=== PATIENT | female | born 1985 | race Caucasian/White ===

== ENCOUNTER 2019-10-15 23:46 | Inpatient (IN) | payer MEDICARE, MEDICAID ==
--- NOTE | 2019-10-15 23:59 | EDM.PDOC ---
ED HPI GENERAL MEDICAL PROBLEM - General Stated Complaint: COLD Time Seen by Provider: 10/15/19 23:52 Source of Information: Reports: Patient, RN History Limitations: Reports: No Limitations - History of Present Illness INITIAL COMMENTS - FREE TEXT/NARRATIVE: Cold x 3-4 days, with thick phlegm. Has not been to clinic. No real PCP. Has has tried muccinex and dimetapp. Sore throat. no fever. Coughing a lot. Sputum has been clear. Nasal discharge clear thin. No vomiting. Hx Shandra Nilo. Mobility issues. Does ambulate with supervision. No significant health hx. no home medication. - Related Data Allergies Allergy/AdvReac Type Severity Reaction Status Date / Time No Known Allergies Allergy Verified 10/15/19 23:53 Home Meds: Home Meds . [No Known Home Meds] 10/15/19 [History] Past Medical History - History Comment History Comment: Shandra Corcoran Social & Family History - Tobacco Use Smoking Status *Q: Never Smoker ED ROS GENERAL - Review of Systems Review Of Systems: Comprehensive ROS is negative, except as noted in HPI. ED EXAM, GENERAL - Physical Exam Exam: See Below Exam Limited By: No Limitations General Appearance: Alert, No Apparent Distress, Obese Eye Exam: Bilateral Eye: EOMI Ears: Normal External Exam, Hearing Grossly Normal, Normal TMs Nose: Normal Inspection Throat/Mouth: Normal Inspection, Normal Lips Head: Atraumatic, Normocephalic Neck: Normal Inspection, Full Range of Motion Respiratory/Chest: No Respiratory Distress, Rhonchi. No: Wheezing, Stridor, Accessory Muscle Use Cardiovascular: Normal Peripheral Pulses, Regular Rate, Rhythm GI/Abdominal: Normal Bowel Sounds, Soft Back Exam: Normal Inspection Extremities: No: Mottled Neurological: Alert (mild -moderate cognitive deficit), Oriented, Other ( ambulatory with supervision). No: Normal Cognition (mild -moderate cognitive deficet) Psychiatric: Normal Affect, Normal Mood Skin Exam: Warm, Dry, Intact, Normal Color Course - Vital Signs Last Recorded V/S: Last Vital Signs Temp 97.6 F 10/15/19 23:53 Pulse 126 H 10/15/19 23:53 Resp 30 H 10/15/19 23:53 BP 158/93 H 10/15/19 23:53 Pulse Ox 91 L 10/15/19 23:53 - Orders/Labs/Meds Orders: Active Orders 24 hr Category Date Time Status Admission Diagnosis [ADT] Stat ADT 10/16/19 02:38 Ordered Admission Status [Patient Status] [ADT] Routine ADT 10/16/19 02:38 Ordered Cardiac Monitoring [RC] . DIRECTED Care 10/16/19 02:38 Ordered RT Aerosol Therapy [RC] ASDIRECTED Care 10/16/19 00:03 Active RT Aerosol Therapy [RC] ASDIRECTED Care 10/16/19 02:24 Ordered Chest 2V [CR] Urgent Exams 10/16/19 00:00 Ordered CULTURE STREP A CONFIRMATION [RM] Stat Lab 10/16/19 00:45 Results STREP SCRN A RAPID W CULT CONF [RM] Stat Lab 10/16/19 00:45 Results Isolation [COMM] Routine Oth 10/16/19 00:02 Active Labs: Laboratory Tests 10/16/19 10/16/19 Range/Units 00:38 00:38 WBC 8.7 (5.0-10.0) 10^3/uL RBC 5.28 (4.2-5.4) 10^6/uL Hgb 14.9 (12.0-16.0) g/dL Hct 45.1 (37.0-47.0) % MCV 85.4 (80-100) fL MCH 28.2 (27.0-34.0) pg MCHC 33.0 (33.0-35.0) g/dL Plt Count 221 (150-450) 10^3/uL Neut % (Auto) 80.1 H (42.2-75.2) % Lymph % (Auto) 9.9 L (20.5-50.1) % [place] % (Auto) 8.8 H (2-8) % Eos % (Auto) 0.7 L (1.0-3.0) % Baso % (Auto) 0.5 (0.0-1.0) % Sodium 135 L (136-145) mmol/L Potassium 4.4 (3.5-5.1) mmol/L Chloride 97 L (98-107) mmol/L Carbon Dioxide 29 (21-32) mmol/L Anion Gap 13.4 H (7-13) mEq/L BUN 12 (7-18) mg/dL Creatinine 0.54 L (0.55-1.02) mg/dL Est Cr Clr Drug Dosing TNP Estimated GFR (MDRD) > 60 BUN/Creatinine Ratio 22.2 (No establ ref range) Glucose 156 H (74-99) mg/dL Calcium 7.9 L (8.5-10.1) mg/dL Total Bilirubin 0.4 (0.2-1.0) mg/dL AST 25 (15-37) U/L ALT 25 (14-59) U/L Alkaline Phosphatase 75 (46-116) U/L Total Protein 7.9 (6.4-8.2) g/dL Albumin 3.5 (3.4-5.0) g/dL Globulin 4.4 Albumin/Globulin Ratio 0.8 Meds: Medications Discontinued Medications Generic Name Dose Route Start Last Admin Trade Name Freq PRN Reason Stop Dose Admin Albuterol 2.5 mg 10/16/19 02:23 10/16/19 02:28 Proventil Neb Soln NEB 10/16/19 02:24 2.5 mg ONETIME ONE Administration Albuterol/Ipratropium 3 ml 10/16/19 00:03 10/16/19 00:42 Duoneb 3.0-0.5 Mg/3 Ml NEB 10/16/19 00:04 3 ml ONETIME ONE Administration Azithromycin 500 mg 10/16/19 01:44 10/16/19 01:54 Zithromax 200 Mg/5 Ml Susp PO 10/16/19 01:45 500 mg ONETIME ONE Administration Ceftriaxone Sodium 1 gm/ 0 gm 10/16/19 01:46 10/16/19 01:58 Lidocaine HCl 2.1 ml IM 10/16/19 01:47 1 inj ONETIME ONE Administration - Radiology Interpretation Free Text/Narrative:: LLL pneumonia, see report - Re-Assessments/Exams Free Text/Narrative Re-Assessment/Exam: 10/16/19 02:46 Loose non productive non effective cough. Oxygen sats while awake, 91-92, desaturations with light dozing and lying back in chair, Dr Sepnce accepting patient for admission. Patient cooperative, able to follow simple directions. Departure - Departure Time of Disposition: 01:51 Disposition: Admitted As Inpatient 64 Condition: Good Clinical Impression: History of Prader-Willi syndrome, Hypoxia Pneumonia Qualifiers: Pneumonia type: due to unspecified organism Laterality: left Lung location: lower lobe of lung Qualified Code(s): J18.9 - Pneumonia, unspecified organism - Discharge Information *PRESCRIPTION DRUG MONITORING PROGRAM REVIEWED*: No *COPY OF PRESCRIPTION DRUG MONITORING REPORT IN PATIENT SANKET: No Instructions: Community-Acquired Pneumonia, Adult, [id number] Sepsis Event Note - Focused Exam Vital Signs: Vital Signs Temp Pulse Resp BP Pulse Ox 10/15/19 23:53 97.6 F 126 H 30 H 158/93 H 91 L Date Exam was Performed: 10/16/19 Time Exam was Performed: 02:51 - My Orders Last 24 Hours: My Active Orders 10/16/19 00:00 Chest 2V [CR] Urgent 10/16/19 00:02 Isolation [COMM] Routine 10/16/19 00:03 RT Aerosol Therapy [RC] ASDIRECTED 10/16/19 00:45 CULTURE STREP A CONFIRMATION [RM] Stat STREP SCRN A RAPID W CULT CONF [RM] Stat 10/16/19 02:24 RT Aerosol Therapy [RC] ASDIRECTED 10/16/19 02:38 Admission Diagnosis [ADT] Stat Admission Status [Patient Status] [ADT] Routine Cardiac Monitoring [RC] . DIRECTED - Assessment/Plan Last 24 Hours: My Active Orders 10/16/19 00:00 Chest 2V [CR] Urgent 10/16/19 00:02 Isolation [COMM] Routine 10/16/19 00:03 RT Aerosol Therapy [RC] ASDIRECTED 10/16/19 00:45 CULTURE STREP A CONFIRMATION [RM] Stat STREP SCRN A RAPID W CULT CONF [RM] Stat 10/16/19 02:24 RT Aerosol Therapy [RC] ASDIRECTED 10/16/19 02:38 Admission Diagnosis [ADT] Stat Admission Status [Patient Status] [ADT] Routine Cardiac Monitoring [RC] . DIRECTED
[2019-10-16] MEDS ORDERED: Albuterol/Ipratropium 3.0-0.5 MG/3 ML Neb Soln NEB ONE (00:03)
[2019-10-16 01:09] LABS: ANION GAP 13.4 mEq/L (7-13); CHLORIDE,CL 97 mmol/L (98-107); SODIUM,NA 135 mmol/L (136-145)
[2019-10-16] MEDS ORDERED: Azithromycin 200 MG/5 ML Susp 30 ML Bottle PO ONE (01:44)
[2019-10-16] MEDS ORDERED: cefTRIAXone 1 GM, Lidocaine 1% 2.1 ML IM ONE ×2 (01:46)
[2019-10-16] MEDS ORDERED: Albuterol 0.083% 2.5 MG/3 ML Neb Soln NEB ONE (02:23)
[2019-10-16] MEDS ORDERED: guaiFENesin 100 MG/5 ML Soln 5 ML UD Cup PO PRN (03:26)
[2019-10-16] MEDS ORDERED: Albuterol/Ipratropium 3.0-0.5 MG/3 ML Neb Soln NEB PRN (03:26)
[2019-10-16] MEDS ORDERED: Docusate Sodium 100 MG Cap PO PRN (03:27)
[2019-10-16] MEDS ORDERED: Ondansetron 4 MG Tab.DIS PO PRN (03:27)
[2019-10-16] MEDS ORDERED: Acetaminophen 325 MG Tab PO PRN (03:27)
[2019-10-16] MEDS ORDERED: Zolpidem 5 MG Tab PO PRN (03:27)
[2019-10-16] MEDS: Heparin Sodium 5,000 Units/ML Vial SUBCUT SCH ×3 (05:59→22:04)
[2019-10-16] MEDS: Albuterol/Ipratropium 3.0-0.5 MG/3 ML Neb Soln NEB SCH ×3 (07:35→18:34)
[2019-10-16] MEDS: Insulin Lispro 100 Units/ML 3 ML Vial SUBCUT SCH ×4 (08:12→22:06)
--- NOTE | 2019-10-16 10:21 | PCM.HP ---
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 She moves with electric wheelchair. No regular medications. She rarely goes to the doctor. Developed cough, stuffy nose, secretions associated with shortness of breath a few days prior to presentation to the emergency room. She has no known sick contact. Did not leave the house lately. No fever. No nausea, vomiting, abdominal pain, diarrhea, urinary symptoms. - Related Data Allergies/Adverse Reactions: Allergies Allergy/AdvReac Type Severity Reaction Status Date / Time No Known Allergies Allergy Verified 10/16/19 03:51 Home Medications: Home Meds . 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 Denies: Fever Pulmonary: Reports: Shortness of Breath, Cough, Sputum. Denies: Wheezing, Hemoptysis Cardiovascular: Reports: Edema. Denies: Chest Pain Gastrointestinal: Denies: Abdominal Pain Genitourinary: Denies: Frequency, Burning Psychiatric: Denies: Confusion Exam - Exam Exam: See Below - Vital Signs Vital Signs: Last Vital Signs Temp 97.6 F 10/16/19 07:52 Pulse 86 10/16/19 07:52 Resp 22 H 10/16/19 07:52 BP 111/61 10/16/19 07:52 Pulse Ox 92 L 10/16/19 07:52 Weight: 277 lb - Exam Quality Assessment: Supplemental Oxygen General: Alert, Oriented Neck: Supple Lungs: Normal Respiratory Effort, Decreased Breath Sounds, Rhonchi Cardiovascular: Regular Rate, Regular Rhythm GI/Abdominal Exam: Normal Bowel Sounds, Soft, Non-Tender, Other (Morbidly obese) Extremities: Other (Bilateral lower extremity lymphedema) - Patient Data Lab Results Last 24 hrs: Laboratory Results - last 24 hr 10/16/19 10/16/19 10/16/19 Range/Units 00:38 00:38 07:43 WBC 8.7 (5.0-10.0) 10^3/uL RBC 5.28 (4.2-5.4) 10^6/uL Hgb 14.9 (12.0-16.0) g/dL Hct 45.1 (37.0-47.0) % MCV 85.4 (80-100) fL MCH 28.2 (27.0-34.0) pg MCHC 33.0 (33.0-35.0) g/dL Plt Count 221 (150-450) 10^3/uL Neut % (Auto) 80.1 H (42.2-75.2) % Lymph % (Auto) 9.9 L (20.5-50.1) % [place] % (Auto) 8.8 H (2-8) % Eos % (Auto) 0.7 L (1.0-3.0) % Baso % (Auto) 0.5 (0.0-1.0) % Sodium 135 L (136-145) mmol/L Potassium 4.4 (3.5-5.1) mmol/L Chloride 97 L (98-107) mmol/L Carbon Dioxide 29 (21-32) mmol/L Anion Gap 13.4 H (7-13) mEq/L BUN 12 (7-18) mg/dL Creatinine 0.54 L (0.55-1.02) mg/dL Est Cr Clr Drug Dosing TNP Estimated GFR (MDRD) > 60 BUN/Creatinine Ratio 22.2 (No establ ref range) Glucose 156 H (74-99) mg/dL POC Glucose 125 H (70-105) mg/dl Calcium 7.9 L (8.5-10.1) mg/dL Total Bilirubin 0.4 (0.2-1.0) mg/dL AST 25 (15-37) U/L ALT 25 (14-59) U/L Alkaline Phosphatase 75 (46-116) U/L Total Protein 7.9 (6.4-8.2) g/dL Albumin 3.5 (3.4-5.0) g/dL Globulin 4.4 Albumin/Globulin Ratio 0.8 Result Diagrams: 10/16/19 00:38 10/16/19 00:38 Paul Results Last 24 hrs: Microbiology 10/16/19 00:03 Influenza Type A Antigen Screen - Final Nasal, Unspecified NEGATIVE INFLUENZA A VIRUS AG REFERENCE RANGE: NEGATIVE Influenza Type B Antigen Screen - Final NEGATIVE INFLUENZA B VIRUS AG REFERENCE RANGE: NEGATIVE 10/16/19 00:45 Group A Streptococcus Rapid Screen - Final Throat NEGATIVE STREP A SCREEN REFERENCE RANGE: NEGATIVE - Problem List (1) Hypoxia SNOMED Code(s): 710819395 ICD Code: R09.02 - HYPOXEMIA Status: Acute Current Visit: Yes (2) History of Prader-Willi syndrome SNOMED Code(s): 463379633 ICD Code: Q87.11 - PRADER-WILLI SYNDROME Status: Acute Current Visit: No (3) Pneumonia SNOMED Code(s): 166916334 ICD Code: J18.9 - PNEUMONIA, UNSPECIFIED ORGANISM Status: Acute Current Visit: No Qualifiers: Pneumonia type: due to unspecified organism Laterality: left Lung location: lower lobe of lung Qualified Code(s): J18.9 - Pneumonia, unspecified organism Problem List Initiated/Reviewed/Updated: Yes Orders Last 24hrs: Active Orders 24 hr Category Date Time Status Admission Diagnosis [ADT] Stat ADT 10/16/19 02:38 Ordered Admission Status [Patient Status] [ADT] Routine ADT 10/16/19 02:38 Active Antiembolic Devices [RC] PER UNIT ROUTINE Care 10/16/19 03:29 Active Cardiac Monitoring [RC] . DIRECTED Care 10/16/19 02:38 Inactive Glucose [Blood Glucose Check, Bedside] [RC] QIDACANDBED Care 10/16/19 03:27 Active Oxygen Therapy [RC] PRN Care 10/16/19 03:27 Active RT Aerosol Therapy [RC] ASDIRECTED Care 10/16/19 00:03 Active RT Aerosol Therapy [RC] ASDIRECTED Care 10/16/19 02:24 Active RT Aerosol Therapy [RC] ASDIRECTED Care 10/16/19 03:25 Active RT Aerosol Therapy [RC] ASDIRECTED Care 10/16/19 03:26 Active VTE/DVT Education [RC] PER UNIT ROUTINE Care 10/16/19 03:27 Active Vital Signs [RC] 04,08,12,16,20,00 Care 10/16/19 03:27 Active Regular Diet [DIET] Diet 10/16/19 Breakfast Active BASIC METABOLIC PANEL,BMP [CHEM] AM Lab 10/17/19 05:11 Ordered CBC W/O DIFF,HEMOGRAM [HEME] AM Lab 10/17/19 05:11 Ordered CULTURE STREP A CONFIRMATION [RM] Stat Lab 10/16/19 00:45 Results STREP SCRN A RAPID W CULT CONF [RM] Stat Lab 10/16/19 00:45 Results Acetaminophen [Tylenol] Med 10/16/19 03:27 Active 650 mg PO Q4H PRN Albuterol/Ipratropium [DuoNeb 3.0-0.5 MG/3 ML] Med 10/16/19 03:26 Active 3 ml NEB Q2H PRN Albuterol/Ipratropium [DuoNeb 3.0-0.5 MG/3 ML] Med 10/16/19 07:00 Active 3 ml NEB Q6HRRT Azithromycin [Zithromax] Med 10/16/19 18:00 Active 500 mg PO WITHDINNER Docusate Sodium [Colace] Med 10/16/19 03:27 Active 100 mg PO BID PRN Heparin Sodium Med 10/16/19 06:00 Active 5,000 units SUBCUT Q8HR Insulin Lispro [HumaLOG] Med 10/16/19 07:00 Active See Protocol SUBCUT ACBED Ondansetron [Zofran ODT] Med 10/16/19 03:27 Active 4 mg PO Q6H PRN Zolpidem [Ambien] Med 10/16/19 03:27 Active 5 mg PO BEDTIME PRN cefTRIAXone [Rocephin] 1 gm Med 10/16/19 17:00 Active Lidocaine 1% [Xylocaine-MPF 1%] 2.1 ml IM DAILY@1700 guaiFENesin [Robitussin] Med 10/16/19 03:26 Active 100 mg PO Q6H PRN Antiembolic Hose [OM.PC] Per Unit Routine Oth 10/16/19 03:28 Ordered Resuscitation Status Routine Resus Stat 10/16/19 03:27 Ordered Medication Orders Acetaminophen (Tylenol) 650 mg PO Q4H PRN PRN Reason: Pain (Mild 1-3)/fever Albuterol/Ipratropium (Duoneb 3.0-0.5 Mg/3 Ml) 3 ml NEB Q6HRRT [facility] Last Admin: 10/16/19 07:35 Dose: 3 ml Albuterol/Ipratropium (Duoneb 3.0-0.5 Mg/3 Ml) 3 ml NEB Q2H PRN PRN Reason: sob Azithromycin (Zithromax) 500 mg PO WITHDINNER [facility] Ceftriaxone Sodium 1 gm/ (Lidocaine HCl 2.1 ml) 0 gm IM DAILY@1700 [facility] Docusate Sodium (Colace) 100 mg PO BID PRN PRN Reason: Constipation Guaifenesin (Robitussin) 100 mg PO Q6H PRN PRN Reason: Cough Heparin Sodium (Porcine) (Heparin Sodium) 5,000 units SUBCUT Q8HR [facility] Last Admin: 10/16/19 05:59 Dose: 5,000 units Insulin Human Lispro (Humalog) 0 unit SUBCUT ACBED [facility]; Protocol Last Admin: 10/16/19 08:12 Dose: Not Given Ondansetron HCl (Zofran Odt) 4 mg PO Q6H PRN PRN Reason: nausea, able to take PO Zolpidem Tartrate (Ambien) 5 mg PO BEDTIME PRN PRN Reason: Sleep Assessment/Plan Comment:: 54 years old with a history of Edward Nilo syndrome She has associated morbid obesity, lymphedema, mental retardation. She presented with cough, congested airways. In the ER she was noted to have hypoxemia on room air, pneumonia on chest x-ray Acute community-acquired pneumonia Possible aspiration pneumonia We'll monitor for aspiration symptoms We were unable to obtain IV site due to body habitus Could not obtain blood cultures Try to obtain sputum culture We'll use IM ceftriaxone and oral azithromycin Add DuoNeb for airway clearance and secretions Acute hypoxemic respiratory failure Noted to have less than 88% saturations in the ER Supplement oxygen as needed Lymphedema Have PT, OT evaluation OT for lymphedema wraps bilateral lower extremities DVT prophylaxis with subcutaneous heparin
[2019-10-16] MEDS ORDERED: cefTRIAXone 1 GM, Lidocaine 1% 2.1 ML IM SCH ×2 (17:00)
[2019-10-16] MEDS ORDERED: Azithromycin 200 MG/5 ML Susp 30 ML Bottle PO SCH (18:00)
[2019-10-16] MEDS: Azithromycin 250 MG Tab PO SCH ×2 (18:34→19:02)
[2019-10-16] MEDS ORDERED: Acetaminophen Soln 160 MG/5 ML UD Cup PO PRN ×2 (22:53→22:57)
[2019-10-17] MEDS: Albuterol/Ipratropium 3.0-0.5 MG/3 ML Neb Soln NEB SCH ×4 (00:35→18:51)
[2019-10-17] MEDS: Heparin Sodium 5,000 Units/ML Vial SUBCUT SCH ×3 (05:49→22:26)
[2019-10-17 08:27] LABS: ANION GAP 15.4 mEq/L (7-13); CHLORIDE,CL 101 mmol/L (98-107); SODIUM,NA 138 mmol/L (136-145)
[2019-10-17] MEDS: Insulin Lispro 100 Units/ML 3 ML Vial SUBCUT SCH ×2 (09:13→12:28)
--- NOTE | 2019-10-17 11:42 | PCM.PN ---
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 She moves with electric wheelchair. She presented with cough, stuffy nose, nasal secretion and associated shortness of breath for a few days. She was admitted for possible comments" pneumonia. Chest x-ray showed right lower lung consolidation. Patient was sent today with father by bedside. She appears to be doing well. She is sitting up watching TV. Not in the pulmonary distress. She denies any symptoms. Functional Status: Reports: Pain Controlled - Review of Systems General: Reports: No Symptoms HEENT: Reports: No Symptoms Pulmonary: Reports: No Symptoms Cardiovascular: Reports: No Symptoms Gastrointestinal: Reports: No Symptoms Genitourinary: Reports: No Symptoms Musculoskeletal: Reports: No Symptoms Skin: Reports: No Symptoms Neurological: Reports: No Symptoms Psychiatric: Reports: No Symptoms - Patient Data Vitals - Most Recent: Last Vital Signs Temp 98.8 F 10/17/19 08:00 Pulse 93 10/17/19 08:00 Resp 24 H 10/17/19 08:00 BP 114/53 L 10/17/19 08:00 Pulse Ox 97 10/17/19 08:00 Weight - Most Recent: 277 lb I&O - Last 24 Hours: Intake & Output 10/16/19 10/17/19 10/17/19 22:59 06:59 14:59 Intake Total 1270 Output Total 300 Balance 1270 -300 Lab Results Last 24 Hours: Laboratory Results - last 24 hr 10/16/19 10/16/19 10/16/19 Range/Units 11:48 16:58 20:59 WBC (5.0-10.0) 10^3/uL RBC (4.2-5.4) 10^6/uL Hgb (12.0-16.0) g/dL Hct (37.0-47.0) % MCV (80-100) fL MCH (27.0-34.0) pg MCHC (33.0-35.0) g/dL Plt Count (150-450) 10^3/uL Sodium (136-145) mmol/L Potassium (3.5-5.1) mmol/L Chloride (98-107) mmol/L Carbon Dioxide (21-32) mmol/L Anion Gap (7-13) mEq/L BUN (7-18) mg/dL Creatinine (0.55-1.02) mg/dL Est Cr Clr Drug Dosing mL/min Estimated GFR (MDRD) Glucose (74-99) mg/dL POC Glucose 130 H 152 H 161 H (70-105) mg/dl Calcium (8.5-10.1) mg/dL 10/17/19 10/17/19 10/17/19 Range/Units 06:20 06:55 08:59 WBC 5.3 (5.0-10.0) 10^3/uL RBC 4.42 (4.2-5.4) 10^6/uL Hgb 12.5 D (12.0-16.0) g/dL Hct 38.9 (37.0-47.0) % MCV 88.0 (80-100) fL MCH 28.3 (27.0-34.0) pg MCHC 32.1 L (33.0-35.0) g/dL Plt Count 197 (150-450) 10^3/uL Sodium 138 (136-145) mmol/L Potassium 4.4 (3.5-5.1) mmol/L Chloride 101 (98-107) mmol/L Carbon Dioxide 26 (21-32) mmol/L Anion Gap 15.4 H (7-13) mEq/L BUN 15 (7-18) mg/dL Creatinine 0.57 (0.55-1.02) mg/dL Est Cr Clr Drug Dosing 98.01 mL/min Estimated GFR (MDRD) > 60 Glucose 159 H (74-99) mg/dL POC Glucose 132 H (70-105) mg/dl Calcium 7.8 L (8.5-10.1) mg/dL Paul Results Last 24 Hours: Microbiology 10/16/19 00:45 Quick Strep Confirmation Culture - Final Throat NO GROUP A STREP ISOLATED REFERENCE RANGE: NEGATIVE Group A Streptococcus Rapid Screen - Final NEGATIVE STREP A SCREEN REFERENCE RANGE: NEGATIVE Med Orders - Current: Current Medications Acetaminophen (Tylenol Solution) 650 mg PO Q6H PRN PRN Reason: Fever Last Admin: 10/16/19 23:04 Dose: 650 mg Albuterol/Ipratropium (Duoneb 3.0-0.5 Mg/3 Ml) 3 ml NEB Q6HRRT [facility] Last Admin: 10/17/19 07:36 Dose: 3 ml Albuterol/Ipratropium (Duoneb 3.0-0.5 Mg/3 Ml) 3 ml NEB Q2H PRN PRN Reason: sob Azithromycin (Zithromax 200 Mg/5 Ml Susp) 500 mg PO Q24H [facility] Last Admin: 10/16/19 19:35 Dose: 12.5 ml Ceftriaxone Sodium 1 gm/ (Lidocaine HCl 2.1 ml) 0 gm IM DAILY@1700 [facility] Last Admin: 10/16/19 18:33 Dose: 2.5 inj Docusate Sodium (Colace) 100 mg PO BID PRN PRN Reason: Constipation Guaifenesin (Robitussin) 100 mg PO Q6H PRN PRN Reason: Cough Heparin Sodium (Porcine) (Heparin Sodium) 5,000 units SUBCUT Q8HR [facility] Last Admin: 10/17/19 05:49 Dose: 5,000 units Insulin Human Lispro (Humalog) 0 unit SUBCUT ACBED [facility]; Protocol Last Admin: 10/17/19 09:13 Dose: Not Given Ondansetron HCl (Zofran Odt) 4 mg PO Q6H PRN PRN Reason: nausea, able to take PO Zolpidem Tartrate (Ambien) 5 mg PO BEDTIME PRN PRN Reason: Sleep Discontinued Medications Acetaminophen (Tylenol) 650 mg PO Q4H PRN PRN Reason: Pain (Mild 1-3)/fever Acetaminophen (Tylenol Solution) 650 mg PO Q6H PRN PRN Reason: Fever Albuterol (Proventil Neb Soln) 2.5 mg NEB ONETIME ONE Stop: 10/16/19 02:24 Last Admin: 10/16/19 02:28 Dose: 2.5 mg Albuterol/Ipratropium (Duoneb 3.0-0.5 Mg/3 Ml) 3 ml NEB ONETIME ONE Stop: 10/16/19 00:04 Last Admin: 10/16/19 00:42 Dose: 3 ml Azithromycin (Zithromax 200 Mg/5 Ml Susp) 500 mg PO ONETIME ONE Stop: 10/16/19 01:45 Last Admin: 10/16/19 01:54 Dose: 500 mg Azithromycin ([facility]romax) [facility] Last Admin: 10/16/19 19:02 Dose: Not Given Ceftriaxone Sodium 1 gm/ (Lidocaine HCl 2.1 ml) 0 gm IM ONETIME ONE Stop: 10/16/19 01:47 Last Admin: 10/16/19 01:58 Dose: 1 inj - Exam Quality Assessment: Supplemental Oxygen, DVT Prophylaxis General: Alert, Oriented HEENT: Pupils Equal, Pupils Reactive, EOMI, Mucous Membr. Moist/[place] Neck: Supple Lungs: Clear to Auscultation, Normal Respiratory Effort Cardiovascular: Regular Rate, Regular Rhythm GI/Abdominal Exam: Normal Bowel Sounds, Soft, Non-Tender, No Organomegaly, No Distention, No Abnormal Bruit, No Mass, Pelvis Stable (Female) Exam: Normal External Exam, Normal Speculum Exam, Normal Bimanual Exam Back Exam: Normal Inspection, Full Range of Motion Extremities: Normal Inspection, Normal Range of Motion, Non-Tender, No Pedal Edema, Normal Capillary Refill Skin: Warm, Dry, Intact Wound/Incisions: Healing Well Neurological: No New Focal Deficit Psy/Mental Status: Alert, Normal Affect, Normal Mood Sepsis Event Note - Evaluation Sepsis Screening Result: No Definite Risk - Focused Exam Vital Signs: Vital Signs Temp Pulse Resp BP BP Pulse Ox Pulse Ox 10/17/19 08:00 98.8 F 93 24 H 114/53 L 97 10/17/19 07:36 94 10/17/19 03:27 93 L 10/17/19 00:35 85 89 L 10/17/19 00:00 99.5 F 101 H 20 85/57 L 93 L Date Exam was Performed: 10/17/19 Time Exam was Performed: 11:36 - Problem List Review Problem List Initiated/Reviewed/Updated: Yes - Plan Plan:: Acute community-acquired pneumonia vs possible aspiration pneumonia Shin improvement Continue current antibiotics Aspiration precautions Blood cultures Sputum culture Add DuoNeb for airway clearance and secretions Acute hypoxemic respiratory failure Continue Supplement oxygen and weaned off as able Lymphedema Have PT, OT evaluation OT for lymphedema wraps bilateral lower extremities DVT prophylaxis with subcutaneous heparin
[2019-10-17] MEDS: Levofloxacin 500 MG Tab PO SCH (15:02)
[2019-10-18] MEDS: Albuterol/Ipratropium 3.0-0.5 MG/3 ML Neb Soln NEB SCH ×4 (01:21→18:15)
[2019-10-18] MEDS: Heparin Sodium 5,000 Units/ML Vial SUBCUT SCH ×3 (06:41→22:56)
[2019-10-18] MEDS ORDERED: Levofloxacin 500 MG Tab PO SCH (07:00)
[2019-10-18 07:37] LABS: ANION GAP 12.6 mEq/L (7-13); CHLORIDE,CL 103 mmol/L (98-107); SODIUM,NA 141 mmol/L (136-145)
--- NOTE | 2019-10-18 12:25 | PCM.PN ---
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 She moves with electric wheelchair. She presented with cough, stuffy nose, nasal secretion and associated shortness of breath for a few days. She was admitted for possible comments" pneumonia. Chest x-ray showed right lower lung consolidation. Patient was sent today with mother by bedside. She is doing ok. She is sitting up watching TV. Not in the pulmonary distress. She is in 0.5 L via NC. However her satuarion dropped to 85% on RA. She denies any symptoms. requested for walking desat test. Functional Status: Reports: Pain Controlled - Review of Systems General: Reports: No Symptoms HEENT: Reports: No Symptoms Pulmonary: Reports: No Symptoms Cardiovascular: Reports: No Symptoms Gastrointestinal: Reports: No Symptoms Genitourinary: Reports: No Symptoms Musculoskeletal: Reports: No Symptoms Skin: Reports: No Symptoms Neurological: Reports: No Symptoms Psychiatric: Reports: No Symptoms - Patient Data Vitals - Most Recent: Last Vital Signs Temp 98.9 F 10/18/19 11:40 Pulse 88 10/18/19 11:40 Resp 18 10/18/19 11:40 BP 109/72 10/18/19 11:40 Pulse Ox 90 L 10/18/19 11:40 Weight - Most Recent: 277 lb I&O - Last 24 Hours: Intake & Output 10/17/19 10/18/19 10/18/19 22:59 06:59 14:59 Intake Total 510 Balance 510 Lab Results Last 24 Hours: Laboratory Results - last 24 hr 10/18/19 10/18/19 Range/Units 06:48 06:48 WBC 4.6 L (5.0-10.0) 10^3/uL RBC 4.26 (4.2-5.4) 10^6/uL Hgb 12.0 (12.0-16.0) g/dL Hct 37.7 (37.0-47.0) % MCV 88.5 (80-100) fL MCH 28.2 (27.0-34.0) pg MCHC 31.8 L (33.0-35.0) g/dL Plt Count 213 (150-450) 10^3/uL Sodium 141 (136-145) mmol/L Potassium 4.6 (3.5-5.1) mmol/L Chloride 103 (98-107) mmol/L Carbon Dioxide 30 (21-32) mmol/L Anion Gap 12.6 (7-13) mEq/L BUN 16 (7-18) mg/dL Creatinine 0.49 L (0.55-1.02) mg/dL Est Cr Clr Drug Dosing 114.01 mL/min Estimated GFR (MDRD) > 60 Glucose 118 H (74-99) mg/dL Calcium 8.1 L (8.5-10.1) mg/dL Phosphorus 3.5 (2.6-4.7) mg/dL Magnesium 2.2 (1.8-2.4) mg/dL Med Orders - Current: Current Medications Acetaminophen (Tylenol Solution) 650 mg PO Q6H PRN PRN Reason: Fever Last Admin: 10/16/19 23:04 Dose: 650 mg Albuterol/Ipratropium (Duoneb 3.0-0.5 Mg/3 Ml) 3 ml NEB Q6HRRT [facility] Last Admin: 10/18/19 07:58 Dose: 3 ml Albuterol/Ipratropium (Duoneb 3.0-0.5 Mg/3 Ml) 3 ml NEB Q2H PRN PRN Reason: sob Docusate Sodium (Colace) 100 mg PO BID PRN PRN Reason: Constipation Guaifenesin (Robitussin) 100 mg PO Q6H PRN PRN Reason: Cough Heparin Sodium (Porcine) (Heparin Sodium) 5,000 units SUBCUT Q8HR [facility] Last Admin: 10/18/19 06:41 Dose: 5,000 units Levofloxacin (Levaquin) 500 mg PO Q24H [facility] Last Admin: 10/17/19 15:02 Dose: 500 mg Ondansetron HCl (Zofran Odt) 4 mg PO Q6H PRN PRN Reason: nausea, able to take PO Zolpidem Tartrate (Ambien) 5 mg PO BEDTIME PRN PRN Reason: Sleep Discontinued Medications Acetaminophen (Tylenol) 650 mg PO Q4H PRN PRN Reason: Pain (Mild 1-3)/fever Acetaminophen (Tylenol Solution) 650 mg PO Q6H PRN PRN Reason: Fever Albuterol (Proventil Neb Soln) 2.5 mg NEB ONETIME ONE Stop: 10/16/19 02:24 Last Admin: 10/16/19 02:28 Dose: 2.5 mg Albuterol/Ipratropium (Duoneb 3.0-0.5 Mg/3 Ml) 3 ml NEB ONETIME ONE Stop: 10/16/19 00:04 Last Admin: 10/16/19 00:42 Dose: 3 ml Azithromycin (Zithromax 200 Mg/5 Ml Susp) 500 mg PO ONETIME ONE Stop: 10/16/19 01:45 Last Admin: 10/16/19 01:54 Dose: 500 mg Azithromycin (Zithromax) 500 mg PO WITHDINNER [facility] Last Admin: 10/16/19 19:02 Dose: Not Given Azithromycin (Zithromax 200 Mg/5 Ml Susp) 500 mg PO Q24H [facility] Last Admin: 10/16/19 19:35 Dose: 12.5 ml Ceftriaxone Sodium 1 gm/ (Lidocaine HCl 2.1 ml) 0 gm IM ONETIME ONE Stop: 10/16/19 01:47 Last Admin: 10/16/19 01:58 Dose: 1 inj Ceftriaxone Sodium 1 gm/ (Lidocaine HCl 2.1 ml) 0 gm IM DAILY@1700 [facility] Last Admin: 10/16/19 18:33 Dose: 2.5 inj Insulin Human Lispro (Humalog) 0 unit SUBCUT ACBED [facility]; Protocol Last Admin: 10/17/19 12:28 Dose: Not Given Levofloxacin (Levaquin) 500 mg PO Q24H [facility] - Exam Quality Assessment: Supplemental Oxygen, DVT Prophylaxis General: Alert, Oriented HEENT: Pupils Equal, Pupils Reactive, EOMI, Mucous Membr. Moist/[place] Neck: Supple Lungs: Clear to Auscultation, Normal Respiratory Effort Cardiovascular: Regular Rate, Regular Rhythm GI/Abdominal Exam: Normal Bowel Sounds, Soft, Non-Tender, No Organomegaly, No Distention, No Abnormal Bruit, No Mass, Pelvis Stable (Female) Exam: Normal External Exam, Normal Speculum Exam, Normal Bimanual Exam Back Exam: Normal Inspection, Full Range of Motion Extremities: Normal Inspection, Normal Range of Motion, Non-Tender, No Pedal Edema, Normal Capillary Refill Skin: Warm, Dry, Intact Wound/Incisions: Healing Well Neurological: No New Focal Deficit Psy/Mental Status: Alert, Normal Affect, Normal Mood Sepsis Event Note - Evaluation Sepsis Screening Result: No Definite Risk - Focused Exam Vital Signs: Vital Signs Temp Pulse Resp BP Pulse Ox Pulse Ox 10/18/19 11:40 98.9 F 88 18 109/72 90 L 10/18/19 07:58 92 90 L 10/18/19 07:47 99.5 F 92 20 105/55 L 90 L 10/18/19 05:16 91 L 10/18/19 03:30 90 L 10/18/19 03:00 90 L 10/18/19 01:21 91 92 L 92 L Date Exam was Performed: 10/18/19 Time Exam was Performed: 12:21 - Problem List Review Problem List Initiated/Reviewed/Updated: Yes - My Orders Last 24 Hours: My Active Orders 10/17/19 14:00 levoFLOXacin [Levaquin] 500 mg PO Q24H 10/18/19 11:14 6 Minute Walk Test [OM.PC] Routine 10/19/19 07:00 BASIC METABOLIC PANEL,BMP [CHEM] DAILY CBC W/O DIFF,HEMOGRAM [HEME] DAILY MAGNESIUM [CHEM] DAILY PHOSPHORUS [CHEM] DAILY 10/20/19 07:00 BASIC METABOLIC PANEL,BMP [CHEM] DAILY CBC W/O DIFF,HEMOGRAM [HEME] DAILY PHOSPHORUS [CHEM] DAILY 10/21/19 07:00 BASIC METABOLIC PANEL,BMP [CHEM] DAILY - Plan Plan:: Acute community-acquired pneumonia vs possible aspiration pneumonia Improving Continue current antibiotics Aspiration precautions Blood cultures in process Sputum culture in process Continue DuoNeb for airway clearance and secretions Acute hypoxemic respiratory failure Improving. Now on 0.5 L via NC Continue Supplement oxygen and weaned off as able Walking desat. test. Lymphedema Have PT, OT evaluation OT for lymphedema wraps bilateral lower extremities DVT prophylaxis with subcutaneous heparin
[2019-10-18] MEDS: Levofloxacin 500 MG Tab PO SCH (13:43)
[2019-10-18] MEDS ORDERED: Furosemide 40 MG Tab PO PRN (14:00)
[2019-10-19] MEDS: Albuterol/Ipratropium 3.0-0.5 MG/3 ML Neb Soln NEB SCH ×3 (00:47→14:11)
[2019-10-19] MEDS: Heparin Sodium 5,000 Units/ML Vial SUBCUT SCH ×2 (05:25→14:31)
--- NOTE | 2019-10-19 10:11 | PCM.DCSUM1 ---
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 She moves with electric wheelchair. She presented with cough, stuffy nose, nasal secretion and associated shortness of breath for a few days. She was admitted for possible community acquired pneumonia. Chest x-ray showed right lower lung consolidation. She was admitted and monitored his antibiotics her symptoms improved significantly. The patient through part supplemental oxygen. Her oxygen requirement decreased but was unable to be weaned off oxygen. Patient had a walking desats study. Resting room air saturation was 88%. The lowest oxygen saturation on 4LPM was 84%. The post recovery 1 minute saturation was 93% . Patient will require home oxygen at 1Lpm per NC at rest and 5lpm per NC with activity. She was discharged in a stable condition with plan to follow up with PCP. Diagnosis: Stroke: No - Discharge Data Discharge Date: 10/19/19 Discharge Disposition: Home, Self-Care 01 Condition: Good - Referral to Home Health Primary Care Physician: PCP None - Patient Summary/Data Consults: Consultations 10/16/19 10:22 OT Evaluation and Treatment [CONS] Routine OT Evaluation and Treatment [CONS] Routine PT Evaluation and Treatment [CONS] Routine - Patient Instructions Diet: Regular Diet as Tolerated Activity: As Tolerated Driving: Do Not Drive Showering/Bathing: May Shower Notify Provider of: Fever, Nausea and/or Vomiting - Discharge Plan *PRESCRIPTION DRUG MONITORING PROGRAM REVIEWED*: No *COPY OF PRESCRIPTION DRUG MONITORING REPORT IN PATIENT SANKET: No Prescriptions/Med Rec: Furosemide [Lasix] 40 mg PO BIDDIURETIC PRN 4 Days #8 tablet PRN Reason: Shortness Of Breath guaiFENesin [Deborah-Tussin] 100 mg PO 6XDAY PRN #1 liquid PRN Reason: Cough levoFLOXacin [Levaquin] 500 mg PO Q24H #7 tablet Home Medications: Home Meds Furosemide [Lasix] 40 mg PO BIDDIURETIC PRN 4 Days #8 tablet 10/19/19 [Rx] guaiFENesin [Deborah-Tussin] 100 mg PO 6XDAY PRN #1 liquid 10/19/19 [Rx] levoFLOXacin [Levaquin] 500 mg PO Q24H #7 tablet 10/19/19 [Rx] Oxygen Therapy Mode: Nasal Cannula (Patient require oxygen at discharge) Patient Handouts: Community-Acquired Pneumonia, Adult, [id number] Referrals: Lyn Frey MD [Physician] - - Discharge Summary/Plan Comment DC Time >30 min.: Yes Discharge Summary/Plan Comment: Follow up with PCP in 5 to 7 days. Complete antibiotics - General Info Date of Service: 10/19/19 Admission Dx/Problem (Free Text: Admission Diagnosis/Problem Admission Diagnosis/Problem Pneumonia Functional Status: Reports: Pain Controlled - Review of Systems General: Reports: No Symptoms HEENT: Reports: No Symptoms Pulmonary: Reports: No Symptoms Cardiovascular: Reports: No Symptoms Gastrointestinal: Reports: No Symptoms Genitourinary: Reports: No Symptoms Musculoskeletal: Reports: No Symptoms Skin: Reports: No Symptoms Neurological: Reports: No Symptoms Psychiatric: Reports: No Symptoms - Patient Data Vitals - Most Recent: Last Vital Signs Temp 98.1 F 10/19/19 07:47 Pulse 85 10/19/19 07:47 Resp 28 H 10/19/19 07:47 BP 110/68 10/19/19 07:47 Pulse Ox 93 L 10/19/19 07:47 Weight - Most Recent: 277 lb I&O - Last 24 hours: Intake & Output 10/18/19 10/19/19 10/19/19 22:59 06:59 14:59 Intake Total 300 240 Balance 300 240 Lab Results - Last 24 hrs: Laboratory Results - last 24 hr 10/18/19 10/19/19 Range/Units 06:48 06:35 Phosphorus 3.9 (2.6-4.7) mg/dL Magnesium 2.2 (1.8-2.4) mg/dL B-Natriuretic Peptide 147 H (0-100) pg/ml Med Orders - Current: Current Medications Acetaminophen (Tylenol Solution) 650 mg PO Q6H PRN PRN Reason: Fever Last Admin: 10/16/19 23:04 Dose: 650 mg Albuterol/Ipratropium (Duoneb 3.0-0.5 Mg/3 Ml) 3 ml NEB Q6HRRT [facility] Last Admin: 10/19/19 07:33 Dose: 3 ml Albuterol/Ipratropium (Duoneb 3.0-0.5 Mg/3 Ml) 3 ml NEB Q2H PRN PRN Reason: sob Docusate Sodium (Colace) 100 mg PO BID PRN PRN Reason: Constipation Furosemide (Lasix) 40 mg PO BIDDIURETIC PRN PRN Reason: sob Guaifenesin (Robitussin) 100 mg PO Q6H PRN PRN Reason: Cough Heparin Sodium (Porcine) (Heparin Sodium) 5,000 units SUBCUT Q8HR [facility] Last Admin: 10/19/19 05:25 Dose: 5,000 units Levofloxacin (Levaquin) 500 mg PO Q24H [facility] Last Admin: 10/18/19 13:43 Dose: 500 mg Ondansetron HCl (Zofran Odt) 4 mg PO Q6H PRN PRN Reason: nausea, able to take PO Zolpidem Tartrate (Ambien) 5 mg PO BEDTIME PRN PRN Reason: Sleep Discontinued Medications Acetaminophen (Tylenol) 650 mg PO Q4H PRN PRN Reason: Pain (Mild 1-3)/fever Acetaminophen (Tylenol Solution) 650 mg PO Q6H PRN PRN Reason: Fever Albuterol (Proventil Neb Soln) 2.5 mg NEB ONETIME ONE Stop: 10/16/19 02:24 Last Admin: 10/16/19 02:28 Dose: 2.5 mg Albuterol/Ipratropium (Duoneb 3.0-0.5 Mg/3 Ml) 3 ml NEB ONETIME ONE Stop: 10/16/19 00:04 Last Admin: 10/16/19 00:42 Dose: 3 ml Azithromycin (Zithromax 200 Mg/5 Ml Susp) 500 mg PO ONETIME ONE Stop: 10/16/19 01:45 Last Admin: 10/16/19 01:54 Dose: 500 mg Azithromycin ([facility]ithromax) [facility] Last Admin: 10/16/19 19:02 Dose: Not Given Azithromycin (Zithromax 200 Mg/5 Ml Susp) 500 mg PO Q24H [facility] Last Admin: 10/16/19 19:35 Dose: 12.5 ml Ceftriaxone Sodium 1 gm/ (Lidocaine HCl 2.1 ml) 0 gm IM ONETIME ONE Stop: 10/16/19 01:47 Last Admin: 10/16/19 01:58 Dose: 1 inj Ceftriaxone Sodium 1 gm/ (Lidocaine HCl 2.1 ml) 0 gm IM DAILY@1700 [facility] Last Admin: 10/16/19 18:33 Dose: 2.5 inj Insulin Human Lispro (Humalog) 0 unit SUBCUT ACBED [facility]; Protocol Last Admin: 10/17/19 12:28 Dose: Not Given Levofloxacin (Levaquin) 500 mg PO Q24H [facility] - Exam Quality Assessment: Reports: Supplemental Oxygen, DVT Prophylaxis General: Reports: Alert, Oriented HEENT: Reports: Pupils Equal, Pupils Reactive, EOMI, Mucous Membr. Moist/[place] Neck: Reports: Supple Lungs: Reports: Clear to Auscultation, Normal Respiratory Effort Cardiovascular: Reports: Regular Rate, Regular Rhythm GI/Abdominal Exam: Normal Bowel Sounds, Soft, Non-Tender, No Organomegaly, No Distention, No Abnormal Bruit, No Mass, Pelvis Stable (Female) Exam: Normal External Exam, Normal Speculum Exam, Normal Bimanual Exam Rectal (Female) Exam: Normal Exam, Normal Rectal Tone Back Exam: Reports: Normal Inspection, Full Range of Motion Extremities: Normal Inspection, Normal Range of Motion, Non-Tender, No Pedal Edema, Normal Capillary Refill Skin: Reports: Warm, Dry, Intact Wound/Incisions: Reports: Healing Well Neurological: Reports: No New Focal Deficit Psy/Mental Status: Reports: Alert, Normal Affect, Normal Mood
[2019-10-19] MEDS: Levofloxacin 500 MG Tab PO SCH (14:31)
== END 2019-10-19 15:35 | disposition home or self-care (01) | DRG 189 ==
LOC: DL.ED 23:46 → DL.MS 10-16 02:38
PROVIDERS: ADMIT Internal Medicine; ATTEND Student in an Organized Health Care Education/Training Program
DX: J96.01 Acute respiratory failure with hypoxia (principal); R09.02 Hypoxemia; J18.9 Pneumonia, unspecified organism; Q87.11 Prader-Willi syndrome; I89.0 Lymphedema, not elsewhere classified; Z99.3 Dependence on wheelchair
CPT/HCPCS: 36415; 71046; 80053; 85025; 87081; 87430; 87804 ×2; 96372; 99285; A9270; J0696; J2001; 80048; 82962; 83735; 83880; 84100; 85027; 94618; 94640; 97140-GO; 97161-GP; 97165-GO; 99284; J1644; J7613-GY; J7620-GY

== ENCOUNTER 2020-10-23 14:21 | Emergency (ER) | payer MEDICARE, MEDICAID ==
[2020-10-23] MEDS ORDERED: Sodium Chloride 0.9% 10 ML Syringe FLUSH PRN (14:23)
--- NOTE | 2020-10-23 15:36 | EDM.PDOC ---
<Phuc Benavidez Abram - Last Filed: 10/23/20 17:55> ED HPI GENERAL MEDICAL PROBLEM - General Chief Complaint: Cardiovascular Problem Stated Complaint: AMBULANCE Time Seen by Provider: 10/23/20 15:00 Source of Information: Reports: Patient History Limitations: Reports: Other (pt has prader liza syndrome and is delayed) - History of Present Illness INITIAL COMMENTS - FREE TEXT/NARRATIVE: 35 y/o f brought in by EMS for hypoxia and increased lymphedema. Pt has Prader Liza syndrome and is delayed. Per father a home nurse visited today and found the pt to be hypoxic with o2 sats in the low 70's. A week ago pts sats were normal. Pt has had lymphedema all her life but it had gotten worse in the last three months accumlating over her L breast and abdomen. Pt also complaining of stomach pn x 3 days. Is not normally on o2. Previous PNA September of last year. CVA june of 2020 with no deficits. Father states pt has been eating and drinking fine. Also reports normal toileting. No reported fevers, cough, chills, drugs, etoh, falls, trauma. Duration: Day(s): Location: Reports: Generalized Improves with: Reports: None Worsens with: Reports: None - Related Data Allergies Allergy/AdvReac Type Severity Reaction Status Date / Time No Known Allergies Allergy Verified 07/09/20 00:36 Home Meds: Home Meds Pediatric Multivitamin No.49 [Flintstones Gummies] 1 tab PO DAILY 07/09/20 [ History] Past Medical History - Past Health History Medical/Surgical History: Denies Medical/Surgical History Respiratory History: Reports: Pneumonia, Recurrent Musculoskeletal History: Reports: Other (See Below) Other Musculoskeletal History: Prader-Willi syndrome Neurological History: Reports: CVA Psychiatric History: Reports: Developmental Delay - Past Surgical History Respiratory Surgical History: Reports: None - History Comment History Comment: Prader Nilo Social & Family History - Family History Family Medical History: No Pertinent Family History - Caffeine Use Caffeine Use: Reports: None ED ROS GENERAL - Review of Systems Review Of Systems: Comprehensive ROS is negative, except as noted in HPI. ED EXAM, GENERAL - Physical Exam Exam: See Below Exam Limited By: Other (developmentally delayed, morbidly obese) General Appearance: Alert Eye Exam: Bilateral Eye: PERRL Ears: Normal External Exam, Normal Canal, Hearing Grossly Normal, Normal TMs Nose: Normal Inspection, Normal Mucosa, No Blood Throat/Mouth: Normal Inspection, Normal Lips, Normal Teeth, Normal Gums, Normal Oropharynx, Normal Voice, No Airway Compromise Head: Atraumatic, Normocephalic Neck: Normal Inspection, Supple, Non-Tender, Full Range of Motion Respiratory/Chest: Other (Lungs diminshed and difficult to auscultate due to obesity. ) Cardiovascular: Normal Peripheral Pulses, Regular Rate, Rhythm GI/Abdominal: Soft, Tender (tender R lower quadrant) (Female) Exam: Deferred Rectal (Female) Exam: Deferred Neurological: Alert, Oriented (normal per father) Skin Exam: Warm, Dry, Intact, Normal Color, No Rash #1 Interpretation EKG Date: 10/23/20 Time: 14:29 Rhythm: Other (sinus) Rate (Beats/Min): 90 [place]: Normal P-Wave: Present QRS: Normal ST-T: Normal QT: Normal EKG Interpretation Comments: sinus rhythm normal axis, normal intervals, no evidence of hypertrophy, normal R wave progression, diffuse t wave inversion throughout Departure - Departure Time of Disposition: 17:55 Disposition: DC/Tfer to [facility] 02 Reason for Transfer *Q: Other Condition: Fair Clinical Impression: Anasarca, Hypoxia, Prader-Willi syndrome, Morbid obesity Acute congestive heart failure Qualifiers: Heart failure type: unspecified Qualified Code(s): I50.9 - Heart failure, unspecified Referrals: PCP,None [Primary Care Provider] - Forms: ED Department Discharge, Interfacility Transfer [facility] Sepsis Event Note (ED) - Evaluation Sepsis Screening Result: No Definite Risk <Sebas Arora - Last Filed: 10/23/20 18:48> ED HPI GENERAL MEDICAL PROBLEM - General Source of Information: Reports: Patient, EMS, Family, Old Records, RN, RN Notes Reviewed ED ROS GENERAL - Review of Systems Review Of Systems: Unable To Obtain (Pt with limited intellectual ability, unable to answer most ROS questions.) Reason Not Obtained: DD Course - Vital Signs Last Recorded V/S: Last Vital Signs Temp 97.2 F 10/23/20 14:42 Pulse 85 10/23/20 14:42 Resp 16 10/23/20 14:42 BP 122/77 10/23/20 14:42 Pulse Ox 93 L 10/23/20 14:42 - Orders/Labs/Meds Orders: Active Orders 24 hr Category Date Time Status EKG Documentation Completion [RC] STAT Care 10/23/20 14:22 Active Insert Baker Catheter [Insert Urinary Catheter] [OM.PC] Care 10/23/20 18:11 Ordered Stat Peripheral IV Care [RC] . DIRECTED Care 10/23/20 14:23 Active Urinary Catheter Assessment [RC] ASDIRECTED Care 10/23/20 18:12 Active Sodium Chloride 0.9% [Saline Flush] Med 10/23/20 14:23 Active 10 ml FLUSH ASDIRECTED PRN Peripheral IV Insertion Adult [OM.PC] Routine Oth 10/23/20 14:22 Ordered Medication Orders Sodium Chloride (Sodium Chloride 0.9% 10 Ml Syringe) 10 ml FLUSH ASDIRECTED PRN PRN Reason: Keep Vein Open Last Admin: 10/23/20 15:08 Dose: 10 ml Documented by: [id number] Labs: Laboratory Tests 10/23/20 10/23/20 10/23/20 Range/Units 14:47 14:47 17:45 WBC 7.8 (5.0-10.0) 10^3/uL RBC 5.41 H (4.2-5.4) 10^6/uL Hgb 13.9 (12.0-16.0) g/dL Hct 45.8 (37.0-47.0) % MCV 84.7 D (80-100) fL MCH 25.7 L (27.0-34.0) pg MCHC 30.3 L (33.0-35.0) g/dL Plt Count 234 (150-450) 10^3/uL Neut % (Auto) 69.5 (42.2-75.2) % Lymph % (Auto) 19.2 L (20.5-50.1) % [place] % (Auto) 9.3 H (2-8) % Eos % (Auto) 0.8 L (1.0-3.0) % Baso % (Auto) 1.2 H (0.0-1.0) % Sodium 140 (136-145) mmol/L Potassium 4.9 (3.5-5.1) mmol/L Chloride 105 (98-107) mmol/L Carbon Dioxide 24 (21-32) mmol/L Anion Gap 15.9 H (7-13) mEq/L BUN 21 H (7-18) mg/dL Creatinine 0.87 (0.55-1.02) mg/dL Est Cr Clr Drug Dosing TNP Estimated GFR (MDRD) > 60 BUN/Creatinine Ratio 24.1 (No establ ref range) Glucose 117 H (74-99) mg/dL Calcium 8.3 L (8.5-10.1) mg/dL Total Bilirubin 1.2 H (0.2-1.0) mg/dL AST 84 H (15-37) U/L ALT 56 (14-59) U/L Alkaline Phosphatase 55 (46-116) U/L Troponin I 0.111 H* 0.131 H* (0.000-0.056) ng/mL B-Natriuretic Peptide 743 H (0-100) pg/ml Total Protein 7.3 (6.4-8.2) g/dL Albumin 3.1 L (3.4-5.0) g/dL Globulin 4.2 Albumin/Globulin Ratio 0.74 Meds: Medications Generic Name Dose Route Start Last Admin Trade Name Freq PRN Reason Stop Dose Admin Sodium Chloride 10 ml 10/23/20 14:23 10/23/20 15:08 Sodium Chloride 0.9% 10 Ml Syringe FLUSH 10 ml ASDIRECTED PRN Administration Keep Vein Open Discontinued Medications Generic Name Dose Route Start Last Admin Trade Name Freq PRN Reason Stop Dose Admin Furosemide 80 mg 10/23/20 17:54 10/23/20 18:14 Furosemide 100 Mg/10 Ml Sdv IVPUSH 10/23/20 17:55 80 mg NOW ONE Administration Iopamidol 100 ml 10/23/20 16:43 10/23/20 17:05 Iopamidol 755 Mg/Ml 100 Ml Bottle IVPUSH 10/23/20 16:44 100 ml ONETIME ONE Administration - Radiology Interpretation Free Text/Narrative:: XR Chest: abnormal, with increased pulmonary venous congestion and slight increase in cardiac silhouette compared to prior study from 06/2020, despite technically limited study per radiologist report. - Re-Assessments/Exams Free Text/Narrative Re-Assessment/Exam: 10/23/20 I personally performed or re-performed the physical examination and medical decision making. I have verified all student documentation or findings, including history, physical exam and/or medical decision making. Sepsis Event Note (ED) - Focused Exam Vital Signs: Vital Signs Temp Pulse Resp BP Pulse Ox 10/23/20 14:42 97.2 F 85 16 122/77 93 L - My Orders Last 24 Hours: My Active Orders 10/23/20 18:11 Insert Baker Catheter [Insert Urinary Catheter] [OM.PC] Stat 10/23/20 18:12 Urinary Catheter Assessment [RC] ASDIRECTED - Assessment/Plan Last 24 Hours: My Active Orders 10/23/20 18:11 Insert Baker Catheter [Insert Urinary Catheter] [OM.PC] Stat 10/23/20 18:12 Urinary Catheter Assessment [RC] ASDIRECTED
[2020-10-23 15:39] LABS: ANION GAP 15.9 mEq/L (7-13); CHLORIDE,CL 105 mmol/L (98-107); SODIUM,NA 140 mmol/L (136-145)
--- NOTE | 2020-10-23 15:50 | CR ---
EXAMINATION: Chest 1V Frontal SEX: Female AGE: 35 years CLINICAL HISTORY: 35-year-old morbidly obese female with history "CHF". Comparison chest radiographs 09 July and September,. Interpretation: Abnormal. Relative increased pulmonary venous congestion and slight increase in cardiac silhouette suggested despite severe technical limitations and overall poor patient inspiration particularly since the more recent 09 July 2020 film. Note: Narrowing of the tracheal airway. Significance? Chronic middle lobe atelectasis/infiltrate or fibrosis. No new focal lobar consolidation (infiltrate/atelectasis) or mass lesion but cannot exclude dependent left pleural effusion i.e complete silhouetting of the left hemidiaphragm today. No pneumothorax or pneumomediastinum. No free subdiaphragmatic air. Discussion: This chest radiograph (CXR) is not normal. See above. Suggest unenhanced CT exam might be helpful. No new lung mass or focal lobar consolidation (infiltrate/atelectasis).
[2020-10-23] MEDS ORDERED: Iopamidol 755 Mg/ML 100 ML Bottle IVPUSH ONE (16:43)
--- NOTE | 2020-10-23 17:36 | CT ---
PROCEDURE INFORMATION: Exam: CT Chest With Contrast; Diagnostic Exam date and time: 10/23/2020 4:58 PM Age: 35 years old Clinical indication: Other: Abd pain; Shortness of breath; Additional info: Hypoxia, pe study, abdominal pain TECHNIQUE: Imaging protocol: Diagnostic computed tomography of the chest with contrast. Radiation optimization: All CT scans at this facility use at least one of these dose optimization techniques: automated exposure control; mA and/or kV adjustment per patient size (includes targeted exams where dose is matched to clinical indication); or iterative reconstruction. Contrast material: ISOVUE 370; Contrast volume: 100 ml; Contrast route: INTRAVENOUS (IV); COMPARISON: CR Chest 1V Frontal 10/16/2019 1:15 AM FINDINGS: Lungs: Scattered ground-glass airspace opacities are seen throughout the lungs. There is atelectasis in the bilateral lung bases. Pleural spaces: There is a small right layering pleural effusion present. There is a small left layering pleural effusion present. Heart: The heart is markedly enlarged. No pericardial thickening or effusion. Pulmonary arteries: Bolus timing is insufficient for definitive exclusion of small peripheral pulmonary emboli. No large emboli noted within the main pulmonary arteries. Proximal through distal segmental branches are not confidently evaluated. Aorta: Normal in course and caliber. No acute pathology. Veins: Contrast reflux into the IVC and hepatic veins. Lymph nodes: No adenopathy. Bones/joints: No acute skeletal pathology. Mild multilevel degenerative changes of the spine, as manifested by multilevel anterior osteophytes and multilevel decrease in intervertebral disc space. Soft tissues: Mild body wall edema is appreciated. IMPRESSION: 1. No large pulmonary emboli noted within the main pulmonary arteries. Proximal through distal segmental branches are not confidently evaluated due to suboptimal contrast bolus and respiratory motion. Consider correlation with nuclear medicine V/P scan if clinically warranted. 2. Cardiopulmonary findings are concerning for volume overload/decompensated CHF. This is manifested by small bilateral layering pleural effusions and suggested mild diffuse pulmonary edema. Superimposed infectious pneumonic process should be entertained in the appropriate clinical setting. 3. Mild body wall edema. PROCEDURE INFORMATION: Exam: CT Abdomen And Pelvis With Contrast Exam date and time: 10/23/2020 4:58 PM Age: 35 years old Clinical indication: Other: Abd pain; Shortness of breath; Additional info: Hypoxia, pe study, abdominal pain TECHNIQUE: Imaging protocol: Computed tomography of the abdomen and pelvis with contrast. Radiation optimization: All CT scans at this facility use at least one of these dose optimization techniques: automated exposure control; mA and/or kV adjustment per patient size (includes targeted exams where dose is matched to clinical indication); or iterative reconstruction. Contrast material: ISOVUE 370; Contrast volume: 100 ml; Contrast route: INTRAVENOUS (IV); COMPARISON: CR Chest 1V Frontal 10/16/2019 1:15 AM FINDINGS: Liver: Normal. No mass. Gallbladder and bile ducts: Multiple calcified gallstones are present. There is no evidence of biliary ductal dilation. Pancreas: Normal. No ductal dilation. Spleen: Normal. No splenomegaly. Adrenal glands: Normal. No mass. Kidneys and ureters: There is a simple cyst in the left kidney measuring 3.7 cm. The kidneys are otherwise unremarkable. Stomach and bowel: No bowel obstruction or significant bowel wall thickening. There is mildly excessive colonic stool content. Appendix: No evidence of appendicitis. Intraperitoneal space: There is a moderate amount of free intraperitoneal fluid present. Vasculature: Unremarkable. No abdominal aortic aneurysm. Lymph nodes: Unremarkable. No enlarged lymph nodes. Urinary bladder: Unremarkable as visualized. Reproductive: Unremarkable as visualized. Bones/joints: No acute skeletal pathology. Mild multilevel degenerative changes of the spine, as manifested by multilevel anterior osteophytes and multilevel decrease in intervertebral disc space. Soft tissues: Diffuse body wall edema. IMPRESSION: 1. Moderate abdominopelvic ascites and diffuse body wall edema, favoring anasarca. 2. No other acute abdominopelvic pathology is otherwise appreciated. 3. Incidental findings as detailed above. COMMENTS: Consistent with the [employer]'s Incidental Findings Committee white paper (J Am Dionne Radiol 2018): Any incidental renal lesion less than 1 cm or classified as too small to characterize, or any incidental cystic renal lesion characterized as simple-appearing, is likely benign. No follow-up imaging is recommended for these lesions per consensus recommendations based on imaging criteria.
[2020-10-23] MEDS ORDERED: Furosemide 100 MG/10 ML SDV IVPUSH ONE (17:54)
== END 2020-10-23 18:54 ==
LOC: DL.ED 14:21
DX: I50.9 Heart failure, unspecified (principal); R09.02 Hypoxemia; Q87.11 Prader-Willi syndrome; Z86.73 Personal history of transient ischemic attack (TIA), and cerebral infarction without residual deficits
CPT/HCPCS: 36415; 51702; 71045; 71260; 74177; 80053; 83880; 84484; 85025; 93005; 96374; 99285; J1940; Q9967; 93010; 99284

== ENCOUNTER 2023-03-26 02:09 | Emergency (ER) | payer MEDICARE, MEDICAID ==
[2023-03-26] MEDS ORDERED: Sodium Chloride 0.9% 10 ML Syringe FLUSH PRN (02:36)
[2023-03-26] MEDS ORDERED: Sodium Chloride 0.9% 500 ML IV SCH (02:45)
[2023-03-26 03:11] LABS: HEMATOCRIT 45.2 % (37.0-47.0); HEMOGLOBIN 14.8 g/dL (12.0-16.0); MEAN CORPUSCULAR HEMOGLOBIN 28.5 pg (27.0-34.0); MEAN CORPUSCULAR HGB CONC 32.7 g/dL (33.0-35.0); MEAN CORPUSCULAR VOLUME 87.1 fL (80-100); PLATELET COUNT,PLT 259 10^3/uL (150-450); RED BLOOD CELL COUNT 5.19 10^6/uL (4.2-5.4); WHITE BLOOD CELL COUNT,WBC 7.7 10^3/uL (5.0-10.0)
[2023-03-26 03:14] LABS: BASOPHILS PERCENT AUTO 0.6 % (0.0-1.0); EOSINOPHILS PERCENT AUTO 1.7 % (1.0-3.0); LYMPHOCYTES PERCENT AUTO 24.3 % (20.5-50.1); MONOCYTES PERCENT AUTO 10.7 % (2-8); NEUTROPHILS PERCENT AUTO 62.7 % (42.2-75.2)
[2023-03-26 03:32] LABS: A/G RATIO 0.49; ALBUMIN 2.6 g/dL (3.4-5.0); ANION GAP 15.9 mEq/L (7-13); BILIRUBIN TOTAL 2.4 mg/dL (0.2-1.0); BUN/CREATININE RATIO 30.6 (No establ ref range); CALCIUM 8.7 mg/dL (8.5-10.1); CREATININE 1.24 mg/dL (0.55-1.02); EST CRCL DRUG DOSING (CG) 43.75 mL/min; MAGNESIUM 2.1 mg/dL (1.8-2.4); POTASSIUM,K 3.9 mmol/L (3.5-5.1); PROTEIN TOTAL,TP 7.9 g/dL (6.4-8.2); TSH ULTRASENSITIVE 9.92 uIU/mL (0.36-3.74)
[2023-03-26 03:39] LABS: EOSINOPHILS PERCENT MAN 1 % (1-3); LYMPHOCYTES PERCENT MAN 25 % (20-50); MONOCYTES PERCENT MAN 9 % (2-8); SEG NEUTROPHILS PERCENT MAN 65 % (42-75)
== END 2023-03-26 06:51 | disposition home or self-care (01) ==
LOC: DL.ED 02:09
DX: R10.84 Generalized abdominal pain (principal); E03.9 Hypothyroidism, unspecified; E86.0 Dehydration; R42 Dizziness and giddiness; R94.4 Abnormal results of kidney function studies; R94.6 Abnormal results of thyroid function studies; E66.9 Obesity, unspecified; Z86.73 Personal history of transient ischemic attack (TIA), and cerebral infarction without residual deficits; Z79.899 Other long term (current) drug therapy; Z68.43 Body mass index [BMI] 50.0-59.9, adult
CPT/HCPCS: 36415; 80053; 83735; 84443; 85025; 96360; 99284; J7040; J3490

== ENCOUNTER 2023-03-27 17:40 | Emergency (ER) | payer MEDICARE, MEDICAID ==
[2023-03-27] MEDS ORDERED: Ketamine 500 MG in Sodium Chloride 0.9% 500 ML IV ONE (17:41)
[2023-03-27] MEDS ORDERED: Heparin Sodium 5,000 Units/ML Vial IV ONE (17:41)
[2023-03-27] MEDS ORDERED: Furosemide 100 MG/10 ML SDV IV ONE (17:41)
[2023-03-27] MEDS ORDERED: Rocuronium 100 MG/10 ML MDV IV ONE (17:41)
[2023-03-27] MEDS ORDERED: Succinylcholine 200 MG/10 ML MDV IV ONE (17:41)
[2023-03-27] MEDS ORDERED: Etomidate 2 MG/ML 10 ML SDV IV ONE (17:41)
[2023-03-27] MEDS ORDERED: Calcium Chloride 10% 1 GM/10 ML Syringe IV ONE (17:41)
[2023-03-27] MEDS ORDERED: Norepinephrine Bit/D5W Premix 250 ML IV ONE (17:41)
[2023-03-27] MEDS ORDERED: Sodium Bicarbonate 8.4% 50 MEQ/50 ML Syringe IV ONE (17:41)
[2023-03-27] MEDS ORDERED: Heparin Sodium/0.45% NaCl 500 ML IV ONE (17:41)
[2023-03-27] MEDS ORDERED: EPINEPHrine 1:10,000 1 MG/10 ML Syringe IV ONE (17:41)
[2023-03-27] MEDS ORDERED: Sodium Chloride 0.9% 10 ML Syringe FLUSH PRN (17:46)
[2023-03-27] MEDS ORDERED: Iopamidol 755 Mg/ML 100 ML Bottle IVPUSH ONE (17:54)
[2023-03-27 17:57] LABS: HEMATOCRIT 47.6 % (37.0-47.0); HEMOGLOBIN 15.4 g/dL (12.0-16.0); MEAN CORPUSCULAR HEMOGLOBIN 28.1 pg (27.0-34.0); MEAN CORPUSCULAR HGB CONC 32.4 g/dL (33.0-35.0); MEAN CORPUSCULAR VOLUME 86.7 fL (80-100); PLATELET COUNT,PLT 233 10^3/uL (150-450); RED BLOOD CELL COUNT 5.49 10^6/uL (4.2-5.4); WHITE BLOOD CELL COUNT,WBC 8.9 10^3/uL (5.0-10.0)
[2023-03-27 18:11] LABS: INR 2.2 (0.9-1.2); PROTHROMBIN TIME 21.8 SEC (9.0-12.0); PTT,PARTIAL THROMBOPLSTIN TIME 24.8 SEC (22.0-34.0)
[2023-03-27 18:15] LABS: ALANINE AMINOTRANSFERASE,ALT 43 U/L (14-59); ALBUMIN 2.6 g/dL (3.4-5.0); ALKALINE PHOSPHATASE 102 U/L (46-116); ASPARTATE AMNIOTRANSFERASE,AST 109 U/L (15-37); BILIRUBIN TOTAL 3.3 mg/dL (0.2-1.0); BLOOD UREA NITROGEN,BUN 50 mg/dL (7-18); BUN/CREATININE RATIO 31.8 (No establ ref range); CALCIUM 9.1 mg/dL (8.5-10.1); CARBON DIOXIDE,CO2 21 mmol/L (21-32); CHLORIDE,CL 99 mmol/L (98-107); CREATININE 1.57 mg/dL (0.55-1.02); GLUCOSE RANDOM 73 mg/dL (70-99); LIPASE 55 U/L (73-393); PROTEIN TOTAL,TP 8.3 g/dL (6.4-8.2)
[2023-03-27 18:21] LABS: B-TYPE NATRIURETIC PEPTIDE,BNP 2590 pg/ml (0-100)
[2023-03-27 18:22] LABS: BASOPHILS PERCENT AUTO 0.6 % (0.0-1.0); EOSINOPHILS PERCENT AUTO 0.4 % (1.0-3.0); LYMPHOCYTES PERCENT AUTO 22.3 % (20.5-50.1); MONOCYTES PERCENT AUTO 8.3 % (2-8); NEUTROPHILS PERCENT AUTO 68.4 % (42.2-75.2)
[2023-03-27 18:25] LABS: LYMPHOCYTES PERCENT MAN 18 % (20-50); MONOCYTES PERCENT MAN 2 % (2-8); NRBC MANUAL 1 /100WBC; SEG NEUTROPHILS PERCENT MAN 80 % (42-75)
[2023-03-27] MEDS ORDERED: Furosemide 40 MG/4 ML VIAL IVPUSH ONE (18:28)
[2023-03-27 18:34] LABS: LACTIC ACID 4.1 mmol/L (0.4-2.0)
[2023-03-27 18:35] LABS: A/G RATIO 0.46; ANION GAP 20.5 mEq/L (7-13); ESTIMATED GFR 43 mL/min (>=60); POTASSIUM,K 4.5 mmol/L (3.5-5.1); SODIUM,NA 136 mmol/L (136-145)
[2023-03-27] MEDS ORDERED: Heparin Sodium 5,000 Units/ML Vial IVPUSH ONE (18:35)
[2023-03-27] MEDS ORDERED: Heparin Sodium 5,000 Units/ML Vial ONE (18:38)
[2023-03-27] MEDS ORDERED: Heparin Sodium/0.45% NaCl 500 ML ONE (18:38)
[2023-03-27] MEDS ORDERED: Midazolam 1 MG/ML 2 ML SDV ONE (18:40)
[2023-03-27] MEDS ORDERED: Heparin Sodium/0.45% NaCl 25,000 UNITS/500 ML BAG IV SCH (18:45)
[2023-03-27] MEDS ORDERED: Furosemide 100 MG/10 ML SDV ONE (18:50)
[2023-03-27] MEDS ORDERED: Norepinephrine Bit/D5W Premix 250 ML ONE (18:52)
[2023-03-27] MEDS ORDERED: Norepinephrine Bit/D5W Premix 250 ML IV SCH (19:00)
[2023-03-27] MEDS ORDERED: Sodium Bicarbonate 8.4% 50 MEQ/50 ML Syringe ONE ×2 (19:05→22:44)
[2023-03-27] MEDS ORDERED: EPINEPHrine 1:10,000 1 MG/10 ML Syringe ONE (22:44)
[2023-03-27] MEDS ORDERED: Calcium Gluconate 10% 1 GM/10 ML SDV ONE (22:44)
== END 2023-03-27 20:00 | disposition expired ==
LOC: DL.ED 17:40
DX: I46.9 Cardiac arrest, cause unspecified (principal); E03.9 Hypothyroidism, unspecified; I45.10 Unspecified right bundle-branch block; E66.9 Obesity, unspecified; Z79.899 Other long term (current) drug therapy
CPT/HCPCS: 31500; 36415; 43752; 51702; 71045; 71275; 74177; 80053; 83605; 83690; 83880; 84484; 85025; 85610; 85730; 87040; 92950; 93010; 96374; 96375; 99285; J0171; J0330; J1644; J1940; J3490; J7040; Q9967